=== PATIENT | female | born 1975 | race Two or more races ===

== ENCOUNTER 2017-01-18 07:47 | Emergency (ER) | payer OTHER ==
[~2017-01-18] VITALS: Ht 154.9 cm; Wt 61.7 kg
[2017-01-18 07:56] VITALS: BP 118/79
[2017-01-18] MEDS: KETOROLAC TROMETH 60MG/2ML VIAL IM ONE (09:07)
== END 2017-01-18 10:41 | disposition home or self-care (01) ==
LOC: ER 07:47
DX: S39.012A Strain of muscle, fascia and tendon of lower back, initial encounter (principal); X50.0XXA Overexertion from strenuous movement or load, initial encounter; Y93.89 Activity, other specified; Y99.8 Other external cause status; Y92.89 Other specified places as the place of occurrence of the external cause
CPT/HCPCS: 72070; 96372; 99284; J1885